=== PATIENT | female | born 1995 | race Caucasian/White ===

== ENCOUNTER 2018-04-07 19:15 | Inpatient (IN) | payer MEDICAID ==
[~2018-04-07] VITALS: Ht 152.4 cm; Wt 63.3 kg
[~2018-04-07 19:15] MED LIST: EPHEDrine SULFATE 50 MG/5 ML SYG ONE; OXYTOCIN 30 UNITS/LR 500 ML BAG IV ONE
[2018-04-07 19:39] VITALS: BP 112/71; PULSE 88; RESP 16
[2018-04-07] MEDS ORDERED: PREN-19 PO (19:40)
[2018-04-07] MEDS ORDERED: LACTATED RINGER'S 1,000 ML IV ONE (20:30)
[2018-04-07] MEDS ORDERED: LACTATED RINGER'S 1,000 ML IV SCH (20:30)
[2018-04-07] MEDS ORDERED: MISOPROSTOL 200 MCG TAB PR PRN (21:30)
[2018-04-07] MEDS ORDERED: CEFAZOLIN 2 GM/50 ML (PMX) 50 ML IVPB SCH (21:30)
[2018-04-07] MEDS ORDERED: OXYTOCIN 30 UNITS/LR 500 ML IV SCH (21:30)
[2018-04-07] MEDS ORDERED: METHYLERGONOVINE 0.2 MG INJ IM PRN (21:30)
[2018-04-07] MEDS ORDERED: OXYTOCIN 30 UNITS/LR 500 ML IV PRN (21:30)
[2018-04-07] MEDS ORDERED: CARBOPROST 250 MCG INJ IM PRN (21:30)
[2018-04-07] MEDS ORDERED: CITRIC ACID/NA CITRATE 30 ML CUP PO ONE (22:00)
[2018-04-07] MEDS ORDERED: ONDANSETRON 4 MG INJ IV PRN (22:00)
--- NOTE | 2018-04-07 22:02 | PREAC ---
Date/Time of Note Date/Time of Note DATE: 04/07/18 TIME: 22:00 Anesthesia Eval and Record Evaluation Time Pre-Procedure Interview DATE: 04/07/18 TIME: 22:00 Age 22 Sex female NPO: 8 hrs Preoperative diagnosis Breech Presentation in Labor Planned procedure Primary Past Medical History Past Medical History: Includes : : (1), Para: (0), Gestational age: (40) Surgery & Anesthesia Issues No known issue Meds Anticoagulation: No Beta Teto within 24 hr: No Reason Beta Teto not given: Pt. not on B-Teto Reported Medications Vit #76/Iron,Carb/FA (Prenatabs Rx Tablet) 1 Each Tablet, 1 EACH PO DAILY, TAB 04/07/18 Current Medications Lactated Ringer's 1,000 ml @ 125 mls/hr Q8H IV ; Start 04/07/18 at 20:30 Cefazolin Sodium/ Dextrose 50 ml @ 100 mls/hr ONCE IVPB ; Start 04/07/18 at 21:30 Oxytocin/Lactated Ringer's 500 ml @ 125 mls/hr POST IV ; Start 04/07/18 at 21:30 Oxytocin/Lactated Ringer's 500 ml @ 0 mls/hr ONCE PRN IV VAGINAL BLEEDING; Start 04/07/18 at 21:30 Methylergonovine Maleate (Methergine) 0.2 mg ONCE PRN IM VAGINAL BLEEDING; Start 04/07/18 at 21:30 Carboprost Tromethamine (Hemabate) 250 mcg ONCE PRN IM VAGINAL BLEEDING; Start 04/07/18 at 21:30 Misoprostol (Cytotec) 1,000 mcg ONCE PRN IL VAGINAL BLEEDING; Start 04/07/18 at 21:30 Citric Acid/ Sodium Citrate (Bicitra) 30 ml ONCE ONCE PO ; Start 04/07/18 at 22:00; Stop 04/07/18 at 22:01 Ondansetron HCl (Zofran Inj) 4 mg Q4H PRN IV NAUSEA AND/OR VOMITING; Start 04/07/18 at 22:00 Meds reviewed: Yes Allergies Coded Allergies: No Known Allergy (Unverified , 04/07/18) Allergies Reviewed: Yes Labs/Studies Labs Reviewed: Reviewed by anesthesiologist Result Diagram: 04/07/182119 Laboratory Tests 04/07/18 21:20 test: Positive Studies: ECG (n/a), CXR (n/a) Pre-procedure Exam Last vitals Vital Signs Date Temp Pulse Resp B/P (MAP) Pulse Ox O2 O2 Flow FiO2 Time Delivery Rate 04/07/18 98.0 88 16 112/71 Room Air 19:39 (85) Airway: Adequate mouth opening, Adequate thyromental dist Mallampati: Mallampati II Teeth: Normal Lung: Normal Heart: Normal ASA Physical Status ASA physical status: 2 Emergency: E Planned Anesthetic Neuraxial: Spinal Planned Pain Management Sub-arachniod narcotics, Parenteral pain med Pre-operative Attestations Prior to commencing anesthesia and surgery, the patient was re-evaluated, there was verification of: *The patient's identity *The results of appropriate recent lab work and preoperative vital signs *The above evaluation not changing prior to induction *Anesthetic plan, risk benefits, alternative and complications discussed with patient/family; questions answered; patient/family understands, accepts and wishes to proceed. ANGIE LOVE MD Apr 07, 2018 22:02
[2018-04-07] MEDS ORDERED: METOCLOPRAMIDE 10 MG INJ ONE (23:14)
[2018-04-07] MEDS ORDERED: PHENYLephrine (100 MCG/ML) 10ML SYG ONE ×2 (23:14→23:15)
[2018-04-07] MEDS ORDERED: morphine SULFATE/PF (10 MG/10 ML) INJ ONE (23:14)
[2018-04-07] MEDS ORDERED: ONDANSETRON 4 MG INJ ONE (23:14)
[2018-04-07] MEDS ORDERED: OXYTOCIN 10 UNIT INJ ONE (23:14)
[2018-04-07] MEDS ORDERED: DEXAMETHASONE 4 MG/ML 1 ML INJ ONE (23:14)
[2018-04-07] MEDS ORDERED: KETOROLAC 30 MG INJ ONE (23:14)
[2018-04-08] MEDS ORDERED: MEPERIDINE 25 MG INJ IV PRN
[2018-04-08] MEDS ORDERED: morphine 2 MG INJ IV PRN ×2
[2018-04-08] MEDS ORDERED: EPHEDrine SULFATE 50 MG/5 ML SYG IV PRN
[2018-04-08] MEDS ORDERED: ACETAMINOPHEN 500 MG TAB PO PRN
[2018-04-08] MEDS ORDERED: ONDANSETRON 4 MG INJ IV PRN ×2
[2018-04-08] MEDS ORDERED: HYDROmorphONE 1 MG/5 ML IV SYRINGE IV PRN ×2
[2018-04-08] MEDS ORDERED: HYDROmorphONE 0.5 MG/0.5 ML SYG IV PRN ×2
[2018-04-08] MEDS ORDERED: KETOROLAC 30 MG INJ IV PRN
[2018-04-08] MEDS ORDERED: FENTAnyl 50 MCG/ML VIAL IV PRN ×2
[2018-04-08] MEDS ORDERED: NALOXONE (0.4 MG/ML) INJ IV PRN
[2018-04-08] MEDS ORDERED: NALBUPHINE HCL (10 MG/1 ML) INJ IV PRN
[2018-04-08] MEDS ORDERED: DIPHENHYDRAMINE 50 MG INJ IV PRN ×2
[2018-04-08] MEDS ORDERED: KETOROLAC 30 MG INJ IM STA (00:10)
--- NOTE | 2018-04-08 00:15 | HP ---
Date/Time of Note Date/Time of Note DATE: 04/08/18 TIME: 00:10 OB - History Hx of Present Free Text/Dictation 22-year-old female 1 para 0 at 38 weeks gestation admitted complaining of onset of a vaginal spotting in p.m. of admission day She was also complaining of uterine cramps Upon observation in OB triage patient had spontaneous rupture of membrane She had known breech presentation and appears to have persistent uterine contractions Patient was scheduled to have a primary section Estimated Due Date: Apr 17, 2018 : 1 Para: 0 Care: Good Care Ultrasounds: Normal mid trimester US Obstetrical Complications: None Medical Complications: None Past Family/Social History * Past Medical, Surgical, Family and Obstetric Histories reviewed from chart. Blood Type: O+ Rubella: immune RPR/VDRL: Negative GBS Status: Negative HBsAG: Negative OB Admission Exam Vital Signs Vital Signs Vital Signs Date Temp Pulse Resp B/P (MAP) Pulse Ox O2 O2 Flow FiO2 Time Delivery Rate 04/07/18 98.0 88 16 112/71 Room Air 19:39 (85) Physical Exam HEENT: WNL Heart: Rhythm Normal Lungs: Clear, Equal Abdomen: WNL Extremities: Normal Reflexes: Normal Cervical Dilatation: 1cm Effacement: 75% Station: -3 Membranes: Ruptured Amniotic Fluid: Other (Dark meconium) Heart Rate: 140's Accelerations: Accelerations Present Decelerations: No Decelerations Varibility: Moderate Contractions on Admission: < 5 Minutes Apart Date/Time Contractions Began: 04/07/2017 Frequency of Contractions: Every 3-4-minute Duration: Over 60 seconds Intensity: Mild Last 72 hours Lab Results CBC & BMP 04/07/18 21:20 OB Assessment/Plan Reason for admission: rupture of membranes Other Assessment: Term gestation Possible IUGR Spontaneous rupture of membrane Breech presentation Other plan: delivery MARK HALEY MD Apr 08, 2018 00:15
--- NOTE | 2018-04-08 00:22 | OPR ---
Operative Report Planned Procedure Free Text/Dictation 22-year-old female 1 para 0 at 38+ weeks gestation with spontaneous rupture of membrane and breech presentation in labor Poor growth is a consideration Procedure date Apr 08, 2018 Procedure(s) Primary Performed by see signature line User Experience Analyst: JOSELIN CANADA MD Anesthesiologist: ANGIE LOVE MD Pre-procedure diagnosis Term gestation Breech presentation Spontaneous rupture of membrane [id number] Anesthesia Type: [id number] spinal Post-Procedure Post-procedure diagnosis Status post primary section Findings Live Baby with double footling breech presentation Dark meconium Normal-appearing right and left fallopian tubes and ovaries Estimated Blood Loss: 500 - 600 mls Specimen(s) none Grafts/Implant(s) none Complication(s) none Pt Condition post procedure: stable Disposition: PACU Procedure Description Under satisfactory anaesthesia a Pfannenstiel incision was made two fingerbreadth above and parallel to the symphysis of pubis. Incision was extended laterally to the border of the Recti muscles on either sides. Incision was carried down with sharp and blunt dissection until fascia was reached. Anterior Recti muscle fascia was incised in mid portion and incision extended laterally to the border of skin incision. Fascia was mobilized from muscle superiorly and Recti muscles were from midline using sharp and blunt dissection. Peritoneum was visualized; Avoiding bowel and bladder it was incised . Incision was extended superiorly and inferiorly. Bladder blade was placed. Posterior peritoneum covering the lower segment of the uterus and lower segment of the uterus were incised. Incision was extended laterally to the border of Round Lig. on either sides and baby was delivered via total breech extraction without any difficulty. Amniotic fluid appeared meconium stained. Cord blood was obtained and cord had 3 vessels . Placenta was delivered spontaneously and appeared intact and complete. Intrauterine cavity was rubbed with a laparotomy sponge. Uterine incision was closed in 2 layers using running stitches of No1 Monocryl. Hemostasis appeared secure. Ovaries and Fallopian tubes were within normal limits. Announcing needle, lap sponge and instrument count to be correct abdomen was closed in layers as follows: Peritoneum and Recti muscles with running stitches of 2-0 Vicryl. Fascia with running stitch of No 1 PDS. Subcutaneous tissue with running stitches of 2-0 Monocryl and skin was closed using alex. Patient tolerated the procedure well and was transferred to [facility] in good condition. MARK HALEY MD Apr 08, 2018 00:22
[2018-04-08] MEDS ORDERED: AZITHROMYCIN 500MG/NS (PMX) 250 ML IVPB ONE (00:30)
--- NOTE | 2018-04-08 00:50 | PAC ---
Date/Time of Note Date/Time of Note DATE: 04/08/18 TIME: 00:50 Post-Anesthesia Notes Post-Anesthesia Note Last documented vital signs Vital Signs Date Temp Pulse Resp B/P (MAP) Pulse Ox O2 O2 Flow FiO2 Time Delivery Rate 04/08/18 98.0 88 16 112/71 99 Room Air 24:00 (85) Activity: WNL Respiratory function: WNL Cardiovascular function: WNL Mental status: Baseline Pain reasonably controlled: Yes Hydration appropriate: Yes Nausea/Vomiting absent: Yes ANGIE LOVE MD Apr 08, 2018 00:50
--- NOTE | 2018-04-08 00:55 | TRIAGE ---
OB Triage Datetime Report Generated by CPN: 04/08/2018 00:55 Datetime: 04/07/2018 22:14 Assessment Type: Admission Assessment Vaginal Bleeding: Scant Maternal Assessment Level of Consciousness: Fully Conscious DTR's/Clonus: DTRs 2+; No Clonus Headache: Denies Blurred Vision: No Respiratory Effort: Unlabored; Regular Rhythm; Equal Expansion Breath Sounds, Left: Clear and Equal Breath Sounds, Right: Clear and Equal Nausea/Vomiting: Denies RUQ Epigastric Pain: Denies Lower Extremities Edema: None Degree: None Upper Extremities Edema: None Degree: None Facial Edema: None Fall Risk Assessment History of Falling: (0) No Secondary Diagnosis: (0) No Ambulatory Aid: (0) Bedrest/Nurse Assist IV Therapy: (20) Yes Gait: (0) Normal/Bedrest/Immobile Mental Status: (0) Oriented to Own Ability Fall Score: 20 Fall Risk Score Definition: No Risk: No action required Pain Assessment Pain Scale: 6 Pain Presence: Intermittent Pain Type: Ache Pain Location: Back Pain Goal: 2 Datetime: 04/07/2018 22:10 Membranes Ruptured Date/Time: 04/07/2018 21:10 Amniotic Fluid Color: Heavy Meconium Amniotic Fluid Odor: Normal Datetime: 04/07/2018 21:32 Membrane Status: Meconium Datetime: 04/07/2018 21:10 Membrane Status: Meconium Membranes Rupture Method: Spontaneous Amniotic Fluid Amount: Moderate Datetime: 04/07/2018 20:08 Stage of : OB Triage Datetime: 04/07/2018 20:00 Stage of : OB Triage Labor Evaluation Frequency: 3-7 Monitor Mode: External Duration (sec)2399: 20-60 Quality: Mild Pattern: Normal: <= 5 Contractions in 10 Minutes Resting Tone Penitas: Relaxed Heart Rate FHR Baseline Rate: 140 Monitor Mode: External US FHR Baseline Changes: No Baseline Change Variability: Moderate 6-25 bpm Accelerations: 15X15 Decelerations: None Category: Category I Pain Assessment Pain Scale: 2 Pain Presence: Intermittent Pain Type: Cramping Pain Location: Abdomen Vaginal Exam Dilatation (cms): 0.0 Effacement (%): 40 Station: -4 Exam By: Delfino Cano Membrane Status: Intact Vaginal Bleeding: None Cervix, Consistency: Moderate Cervix, Position: Posterior Presentation 'A': Breech Datetime: 04/07/2018 19:41 Time of Arrival: 04/07/2018 19:08 EGA: 38.4 Arrived By: Ambulatory Arrived From: Home Chief Complaint: c/o sm amt spotting when wiped in BR Movement: Present Contractions: Denies/Absent Rupture of Membranes: Denies Vaginal Bleeding: Scant Vaginal Discharge: Present Recent Sexual Intercouse: Denies Abdominal Trauma: Not Applicable Patient Complaints: Other Additional Patient Complaints: Pt states baby has been breech Time Provider Notified: 04/07/2018 20:08 Provider Notified: Dr Ortiz Initial Plan: EFM,SVE,UA,URINE CULTURE,EFW,BPP Datetime: 04/07/2018 19:29 Stage of : OB Triage Maternal Assessment Level of Consciousness: Fully Conscious Headache: Denies Blurred Vision: No Respiratory Effort: Unlabored Nausea/Vomiting: Denies RUQ Epigastric Pain: Denies Facial Edema: None Labor Evaluation Frequency: placed Monitor Mode: External Resting Tone Penitas: Relaxed Heart Rate FHR Baseline Rate: 145 Monitor Mode: External US Pain Assessment Pain Scale: 0 Pain Presence: None/Denies Pain Type: N/A
[2018-04-08 03:10] VITALS: BP 108/54; PULSE 72; RESP 18
[2018-04-08] MEDS ORDERED: LACTATED RINGER'S 1,000 ML IV SCH (03:58)
[2018-04-08] MEDS ORDERED: MISOPROSTOL 200 MCG TAB PR PRN (04:00)
[2018-04-08] MEDS ORDERED: OXYCODONE/ACETAMINOPHEN (5/325) TAB PO PRN ×2 (04:00)
[2018-04-08] MEDS ORDERED: HYDROCODONE/APAP (5/325) TAB PO PRN ×2 (04:00)
[2018-04-08] MEDS ORDERED: LANOLIN HPA 1 PKT TOP PRN (04:00)
[2018-04-08] MEDS ORDERED: NA PHOSPHATE/BIPHOS 133 ML ENEMA PR PRN (04:00)
[2018-04-08] MEDS ORDERED: METHYLERGONOVINE 0.2 MG INJ IM PRN (04:00)
[2018-04-08] MEDS ORDERED: CARBOPROST 250 MCG INJ IM PRN (04:00)
[2018-04-08] MEDS ORDERED: OXYTOCIN 30 UNITS/LR 500 ML IV PRN (04:00)
[2018-04-08 04:15] VITALS: BP 113/59; PULSE 69; RESP 20
[2018-04-08] MEDS: CEFAZOLIN 2 GM/50 ML (PMX) 50 ML IVPB SCH ×2 (04:28→13:43)
[2018-04-08] MEDS: CLINDAMYCIN 300 MG CAP PO SCH ×2 (06:20→13:43)
[2018-04-08 08:00] VITALS: BP 108/62; PULSE 67; RESP 19
[2018-04-08] MEDS: SENNA/DOCUSATE NA (8.6MG/50MG) TAB PO SCH ×2 (09:40→21:24)
[2018-04-08] MEDS ORDERED: BISACODYL 10 MG SUPP PR ONE (11:30)
[2018-04-08 12:18] VITALS: BP 104/56; PULSE 75; RESP 18
[2018-04-08 16:00] VITALS: BP 99/59; PULSE 77; RESP 19
[2018-04-08] MEDS: CIPROFLOXACIN 400MG/D5W 200 ML IVPB SCH (17:09)
[2018-04-08] MEDS: PIPER-TAZO 3.375 GM IV (PMX) 100 ML IVPB SCH (18:33)
--- NOTE | 2018-04-08 19:27 | PN ---
Date/Time of Note Date/Time of Note DATE: 04/08/18 TIME: 19:24 Assessment/Plan VTE Prophylaxis VTE Prophylaxis Intervention: ambulation Lines/Catheters IV Catheter Type (from Nrsg): Peripheral IV Assessment/Plan Assessment/Plan Status post postop day #1 Will advance diet and ambulate Continue to monitor vital signs Subjective 24 Hr Interval Summary No bowel movement but passing flatus Constitutional: no complaints, improved, ambulates, BM, flatus, urine output Pain Control: well controlled Exam/Review of Systems Vital Signs Vitals Vital Signs Date Temp Pulse Resp B/P (MAP) Pulse Ox O2 O2 Flow FiO2 Time Delivery Rate 04/08/18 97.9 77 19 99/59 (72) 96 Room Air 16:00 Intake and Output 04/07/18 04/07/18 04/08/18 1515:00 23:00 07:00 IntakeIntake Total 1900 ml OutputOutput Total 1194 ml BalanceBalance 706 ml Exam Free Text/Dictation Abdomen is soft with present bowel sounds Incision is covered Results Result Diagram: 04/08/18 1034 MARK HALEY MD Apr 08, 2018 19:27
[2018-04-08 19:30] VITALS: BP 100/60; PULSE 62; RESP 18
[2018-04-08] MEDS: IBUPROFEN 800 MG TAB PO SCH (23:59)
[2018-04-09] MEDS: PIPER-TAZO 3.375 GM IV (PMX) 100 ML IVPB SCH ×5 (00:46→23:47)
[2018-04-09 03:46] VITALS: BP 99/55; PULSE 70; RESP 18
[2018-04-09] MEDS: CIPROFLOXACIN 400MG/D5W 200 ML IVPB SCH ×2 (04:35→16:20)
[2018-04-09] MEDS: IBUPROFEN 800 MG TAB PO SCH ×3 (05:46→23:40)
[2018-04-09 08:20] VITALS: BP 97/62; PULSE 70; RESP 18
[2018-04-09] MEDS: SENNA/DOCUSATE NA (8.6MG/50MG) TAB PO SCH ×2 (11:29→21:08)
--- NOTE | 2018-04-09 14:40 | DS ---
Date/Time of Note Date/Time of Note DATE: 04/09/18 TIME: 14:39 Obstetrical Discharge Record Final Diagnosis Final Diagnosis: Term delivered Other Final Diagnosis Status post repeat Section Section: Repeat Condition on Discharge Physical Assessment Voiding: Yes Bowel Movement: Yes Breast: Soft, non-tender, Filling Fundus: Firm Abdomen and Incision: Abdomen is soft with present bowel sounds Incision is healing well without induration and or erythema Episiotomy: Not applicable Calf Tenderness: No Patient Condition: Good MARK HALEY MD Apr 09, 2018 14:40
--- NOTE | 2018-04-09 14:46 | DS ---
Date/Time of Note Date/Time of Note DATE: 04/09/18 TIME: 14:44 Discharge Summary Admission/Discharge Info Admit Date/Time Apr 07, 2018 at 21:20 Discharge Date/Time April 09April 10, 2018 Discharge Diagnosis Status post primary Patient Condition: Good Procedures Primary Hx of Present Illness 22-year-old female underwent primary labor Hospital Course Hospital course remained uncomplicated Patient tolerated diet well was ambulating without complications She was discharged home on his second or third day with good prognosis and condition Is told to refer to clinic in 2-3 days for staple removal Home Meds Reported Medications Vit #76/Iron,Carb/FA (Prenatabs Rx Tablet) 1 Each Tablet, 1 EACH PO DAILY, TAB 04/07/18 Follow-up Plan 5 days for staple removal Primary Care Provider Care Physician No Primary Time spent on discharge: > 30 minutes Pending Labs Laboratory Tests Test 04/09/18 06:10 04/09/18 06:50 White Blood Count 16.3 10^3/ul (4.8-10.8) Red Blood Count 3.27 10^6/ul (4.20-5.40) Hemoglobin 10.5 g/dl (12.0-16.0) Hematocrit 31.0 % (37.0-47.0) Mean Corpuscular Volume 94.8 fl (72.0-104.0) Mean Corpuscular Hemoglobin 32.1 pg (29.0-33.0) Mean Corpuscular 33.9 g/dl (32.0-37.0) Hemoglobin Concent Red Cell Distribution Width 12.9 % (11.5-14.5) Platelet Count 238 10^3/UL (140-415) Mean Platelet Volume 9.5 fl (7.4-10.4) Immature Granulocytes % 0.400 % (0.001-0.429) Neutrophils % 71.6 % (30.0-74.0) Lymphocytes % 22.0 % (18.0-55.0) Monocytes % 5.5 % (0.0-13.0) Eosinophils % 0.2 % (0.0-7.0) Basophils % 0.3 % (0.0-2.0) Nucleated Red Blood Cells % 0.0 /100WBC (0.0-0.0) Immature Granulocytes # 0.070 10^3/ul (0.0-0.031) Neutrophils # 11.7 10^3/ul (1.6-7.5) Lymphocytes # 3.6 10^3/ul (0.8-2.9) Monocytes # 0.9 10^3/ul (0.3-0.9) Eosinophils # 0.0 10^3/ul (0.0-0.5) Basophils # 0.1 10^3/ul (0.0-0.1) Nucleated Red Blood Cells # 0.0 10^3/ul (0.0-0.0) Lab Scanned Report [facility] [id number] MARK HALEY MD Apr 09, 2018 14:46
--- NOTE | 2018-04-09 14:47 | PD.PPDC ---
QUALITATIVE FIELD COORDINATOR Discharge Instruction Provider Information Physician Information 22-year-old female underwent primary section Diagnosis [id number] Final Diagnosis: Ikffg5q Status post Condition Ytiks1Gb Patient Condition: Wenvn8e Good Diet [id number] Diet: Cshpy1r Resume Regular Diet Activity/Restrictions Avdbl1Cg Activity: Rdbad0h Normal Activity [id number] Restrictions: Snvxq2g No Exercising No Lifting Nothing in the Vagina No Tampons, douche Jbnat6Or Return to Work or School: [id number] Jun 09, 2018 Follow-up Follow-up with Physician: 1, 4, Day/Days (For staple removal) Return to clinic for Mhnen5Dr JUDGE CLERK Instructions: Nerte2x Fever greater than 101 Chills [id number] OB Instructions: Jsaxa4w Breast Tenderness Depression Comment: Pelvic rest no hard activity for 2 months [id number] Surgical Instructions: [id number] Incisional Drainage Incisional Redness MARK HALEY MD Apr 09, 2018 14:47
[2018-04-09] MEDS ORDERED: IBUP800T48 PO (14:48)
[2018-04-09] MEDS ORDERED: ACET325T33 PO (14:48)
[2018-04-09] MEDS: ACETAMINOPHEN 325 MG TAB PO SCH ×2 (15:00→21:08)
[2018-04-09 16:00] VITALS: BP 113/62; PULSE 68; RESP 18
[2018-04-09 19:40] VITALS: BP 107/64; PULSE 70; RESP 18
[2018-04-10] MEDS: ACETAMINOPHEN 325 MG TAB PO SCH ×3 (03:00→15:00)
[2018-04-10 04:02] VITALS: BP 110/55; PULSE 70; RESP 18
[2018-04-10] MEDS: CIPROFLOXACIN 400MG/D5W 200 ML IVPB SCH ×2 (04:35→09:00)
[2018-04-10] MEDS: IBUPROFEN 800 MG TAB PO SCH ×2 (05:37→14:20)
[2018-04-10] MEDS: PIPER-TAZO 3.375 GM IV (PMX) 100 ML IVPB SCH ×2 (06:37→11:44)
[2018-04-10] MEDS: SENNA/DOCUSATE NA (8.6MG/50MG) TAB PO SCH (10:29)
[2018-04-11] MEDS ORDERED: DIPHTH/TET/ACEL PERTUSS (ADULT) 0.5 ML VIAL IM* ONE (09:00)
[2018-04-11] MEDS ORDERED: MEASLES,MUMPS,RUBELLA VACCINE INJ SC* ONE (09:00)
== END 2018-04-10 15:38 | disposition home or self-care (01) | DRG 788 ==
LOC: OBT 19:15 → L-D 19:17 → OBT 21:20 → L-D 21:20 → PP1 04-08 02:56
PROVIDERS: ADMIT Obstetrics & Gynecology; ATTEND Obstetrics & Gynecology
PROC: 10D00Z1 Extraction of Products of Conception, Low, Open Approach (ICD-10-PCS; principal; 2018-04-08)
PROC: 3E033VJ Introduction of Other Hormone into Peripheral Vein, Percutaneous Approach (ICD-10-PCS; principal; 2018-04-08)
DX: O64.8XX0 Obstructed labor due to other malposition and malpresentation, not applicable or unspecified (principal); O42.92 Full-term premature rupture of membranes, unspecified as to length of time between rupture and onset of labor; Z3A.38 38 weeks gestation of pregnancy; Z37.0 Single live birth
CPT/HCPCS: 36415; 76815; 76818; 81001; 85025; 85610; 85730; 86592; 86850; 86900; 86901; 87086; 87340; 96360; 96361; G0463; J0456; J0690; J0744; J1100; J1885; J2274; J2370; J2405; J2543; J2590; J2765; J7120